=== PATIENT | female | born 1995 | race Hispanic/Latino ===

== ENCOUNTER 2017-03-06 11:47 | Emergency (ER) | payer OTHER ==
[~2017-03-06] VITALS: Ht 157.5 cm; Wt 66.8 kg
[2017-03-06] MEDS ORDERED: ULTRAM50 MG PO (12:34)
[2017-03-06] MEDS ORDERED: KEFLEX500 MG PO (12:34)
[2017-03-06 13:09] VITALS: BP 103/64
== END 2017-03-06 13:10 | disposition home or self-care (01) ==
LOC: EME 11:47
PROC: 0HQGXZZ Repair Left Hand Skin, External Approach (ICD-10-PCS; principal; 2017-03-06)
DX: S61.112A Laceration without foreign body of left thumb with damage to nail, initial encounter (principal); W26.8XXA Contact with other sharp object(s), not elsewhere classified, initial encounter; Y93.89 Activity, other specified; Y99.0 Civilian activity done for income or pay; J45.909 Unspecified asthma, uncomplicated
CPT/HCPCS: 99281; 99283

== ENCOUNTER 2017-08-19 12:27 | Emergency (ER) | payer BC ==
[~2017-08-19] VITALS: Ht 157.5 cm; Wt 63.3 kg
[~2017-08-19 12:27] MED LIST: KEFLEX500 MG PO; ULTRAM50 MG PO
[2017-08-19 14:26] VITALS: BP 99/58
[2017-08-19] MEDS ORDERED: TESSALON PERLE100 MG PO (14:27)
[2017-08-19] MEDS ORDERED: VENTOLIN HFA18 GM IH (14:27)
[2017-08-19] MEDS ORDERED: ZOFRAN ODT4 MG PO (14:27)
[2017-08-19] MEDS ORDERED: MOTRIN800 MG PO (14:27)
== END 2017-08-19 14:47 | disposition home or self-care (01) ==
LOC: RME 12:27 → EME 12:27 → RME 14:47
DX: J06.9 Acute upper respiratory infection, unspecified (principal); J45.909 Unspecified asthma, uncomplicated
CPT/HCPCS: 71046; 87502; 94640; 99281; 99284